=== PATIENT | female | born 1935 | race Caucasian/White ===

== ENCOUNTER → 2018-07-02 | Outpatient (REF) | payer MEDICARE, OTHER ==
[~2018-07-02] MED LIST: ACEBUTOLOL200 MG OR; ACYCLOVIR400 MG PO; ACYCLOVIR800 MG PO; ALENDRONATE70 MG OR; ALENDRONATE70 MG PO; ALLEVIATE PO; AMANTADINE100 MG PO; AMBIEN5 MG PO; ANTIVERT OR; ANTIVERT PO; ANTIVERT12.5 MG PO; ASA LOW DOSE81 MG OR; ASPIRIN EC81 MG PO; ATIVAN0.5 MG PO; AVELOX400 MG PO; B COMPLE2 PO; B6 FOLIC ACD OR; BACTRIM DS1 TAB OR; BENAZEPRIL10 MG PO; BENAZEPRIL5 MG OR; BL FLAX SEED1000 MG PO; BL MAGNESIUM250 MG OR; CALCIUM + D600 MG PO; CALCIUM PO; CARAFATE OR; CARVEDILOL12.5 MG OR; CARVEDILOL25 MG PO; CEPHALEXIN500 MG OR; CHILD ASA81 MG OR; CIPROFLOXACN500 MG PO; CLOPIDOGREL75 MG PO; CO Q-10100 MG PO; CO Q-1075 MG OR; CO Q10 MAX200 MG PO; COREG OR; COREG25 MG PO; COUMADIN5 MG PO; D-MANNOSE OR; DIGOXIN0.25 MG PO; FISH OIL1000 MG PO; FLAX SEED1000 MG PO; FLEXERIL PO; FLOMAX0.4 M1 PO; FLONASE NASAL50 MCG; FUROSEMIDE40 MG PO; GINGER ROOT PO; GINGER ROOT550 MG PO; GNP RED YEAST RICE PO; GREEN TEA315 MG PO; HUMALOG100 MG/ML SC; INSULIN 70/30; ISOSORB DIN30 MG OR; ISOSORB DIN30 MG PO; ISOSORB MONO30 MG PO; KLOR-CON 1010 ME1 PO; KLOR-CON 1010 MEQ PO; LASIX40 MG PO; LORAZEPAM0.5 MG PO; LORTAB 1010 MG PO; LORTAB5 OR; MACRODANTIN100 MG PO; MAREPA1000 MG OR; MECLIZINE HCL25 MG PO; MECLIZINE25 M1 PO; MECLIZINE25 MG OR; MECLIZINE25 MG PO; METRONIDAZOL500 MG PO; MULTIVITAM10 PO; MULTIVITAMI1 PO; NEURONTIN100 MG OR; NOVOLIN 70/30; NOVOLIN 70/30 SC; NOVOLIN R IJ; NOVOLOG MIX100 U/ML SC; PERCOCET 5/321 COMBO PO; PERCOCET 5/325M1 TAB PO; PHENERGAN25 MG/TAB PO; PLAVIX75 MG PO; PRILOSEC20 MG PO; PRIMIDONE50 MG PO; PROMETHAZINE25 M1 PO; PROMETHAZINE25 MG PO; RELION 70/30 SC; RESTORIL30 MG PO; SUCRALFATE1 GM PO; SUPER B COMPLEX PO; SUPER B COMPLEX1 CAP PO; TEMAZEPAM30 MG PO; TOPAMAX50 MG PO; TOPIRAMATE15 MG PO; TOPIRAMATE50 MG PO; TYLENOL # 31 TAB OR; TYLENOL325 MG PO; VITAMIN B-121000 MC1 SL; VITAMIN C1000 MG OR; VITAMIN D-31000 UNIT PO; WARFARIN2.5 MG PO; WARFARIN5 MG PO; XARELTO20 MG PO; ZITHROMAX250 MG PO; ZPAK PO; [UNRECOGNIZED DRUG - OTHER]; [UNRECOGNIZED DRUG - OTHER] OR; [UNRECOGNIZED DRUG - OTHER] OR; [UNRECOGNIZED DRUG - OTHER] PO; [UNRECOGNIZED DRUG - OTHER] PO
[2018-07-02 07:55] LABS: URINE BILIRUBIN - DIPSTICK NEGATIVE (NEGATIVE); URINE BLOOD DIPSTICK TRACE-INTACT (NEGATIVE); URINE COLOR YELLOW; URINE GLUCOSE - DIPSTICK NEGATIVE (NEGATIVE); URINE KETONE NEGATIVE (NEGATIVE); URINE LEUK ESTERASE SMALL (NEGATIVE); URINE NITRITE - DIPSTICK NEGATIVE (Negative); URINE PROTEIN - DIPSTICK NEGATIVE (NEG-TRACE); URINE UROBILINOGEN - DIPSTICK 0.2 E.U./dL (0.2)
[2018-07-02 07:57] LABS: HEMATOCRIT 45.5 % (37.0-47.0); HEMOGLOBIN 15.1 g/dl (12.0-16.0); IMMATURE GRANULOCYTES 0.3 % (0.0-5.0); MEAN CELL VOLUME 96.6 fL CALC (80.0-100.0); MEAN CORPUSCULAR HGB 32.1 pG CALC (26.0-32.0); MEAN CORPUSCULAR HGB CONC 33.2 g/L CALC (32.0-36.0); NEUT# 1.66 thou/uL (2.00-7.15); RED BLOOD COUNT 4.71 mill/uL (4.20-5.60); RED CELL DISTRI WIDTH 13.2 % (11.5-15.5)
[2018-07-02 08:06] LABS: URINE BACTERIA FEW hpf; URINE RBC 0-2 RBC/hpf (0-5); URINE SQUAMOUS EPITHELIAL CELL FEW EPI/hpf (0-FEW)
[2018-07-02 08:07] LABS: URINE TRANSITIONAL EPI. CELLS FEW hpf
[2018-07-02 08:38] LABS: ALBUMIN 4.1 g/dL (3.2-5.0); ALKALINE PHOSPHATASE 70 u/l (38-126); ANION GAP 13 (6-22 (CALC)); BILIRUBIN, TOTAL 0.6 mg/dL (0.0-1.4); BUN 14 mg/dL (8-23); BUN/CREATININE RATIO 20 (12-20 (CALC)); CALCULATED LDLCHOLESTEROL 108 mg/dL (62-129 (CALC)); CARBON DIOXIDE 29 mmol/l (22-30); CHLORIDE 103 mmol/l (95-108); CHOLESTEROL HDL RATIO 3.5 (<4.4 (CALC)); CREATININE 0.7 mg/dL (0.5-1.0); GFR > 60 ML/MIN (>=60 (CALC)); GFR FOR AFR.AMER. > 60 ML/MIN (>=60 (CALC)); HDL CHOLESTEROL 55 mg/dL (>=40); POTASSIUM 4.4 mmol/l (3.5-5.1); SGOT/AST 31 u/l (9-36); SODIUM 141 mmol/l (137-146); TOTAL CHOLESTEROL 191 mg/dl (0-199); TOTAL PROTEIN 6.7 g/dL (6.3-8.2); TOTAL TRIGLYCERIDES 138 mg/dl (30-149); VLDL CHOLESTROL 28 mg/dl (0-48 (CALC))
== END | disposition home or self-care (01) ==
LOC: LAB 06:44
PROVIDERS: ATTEND Nurse Practitioner Family
DX: E11.9 Type 2 diabetes mellitus without complications (principal); I10 Essential (primary) hypertension; R04.2 Hemoptysis; R30.0 Dysuria

== ENCOUNTER → 2018-07-10 | Outpatient (REF) | payer MEDICARE, OTHER ==
[2018-07-10 11:57] LABS: URINE BILIRUBIN - DIPSTICK NEGATIVE (NEGATIVE); URINE BLOOD DIPSTICK NEGATIVE (NEGATIVE); URINE CLARITY CLEAR; URINE COLOR YELLOW; URINE GLUCOSE - DIPSTICK NEGATIVE (NEGATIVE); URINE KETONE NEGATIVE (NEGATIVE); URINE LEUK ESTERASE TRACE (Negative); URINE NITRITE - DIPSTICK NEGATIVE (Negative); URINE PH 5.5 (4.5-8.0); URINE PROTEIN - DIPSTICK NEGATIVE (NEG-TRACE); URINE UROBILINOGEN - DIPSTICK 0.2 E.U./dL (0.2)
== END | disposition home or self-care (01) ==
LOC: LAB 11:17
PROVIDERS: ATTEND Internal Medicine Geriatric Medicine
DX: N39.0 Urinary tract infection, site not specified (principal)

== ENCOUNTER 2018-08-11 08:23 | Emergency (ER) | payer MEDICARE, OTHER ==
[~2018-08-11] VITALS: Ht 177.8 cm; Wt 79.1 kg
[~2018-08-11 08:23] MED LIST changes: -MACRODANTIN100 MG PO
[2018-08-11 10:05] LABS: HEMATOCRIT 45.8 % (37.0-47.0); HEMOGLOBIN 15.2 g/dl (12.0-16.0); IMMATURE GRANULOCYTES 0.2 % (0.0-5.0); MEAN CELL VOLUME 96.6 fL CALC (80.0-100.0); MEAN CORPUSCULAR HGB 32.1 pG CALC (26.0-32.0); MEAN CORPUSCULAR HGB CONC 33.2 g/L CALC (32.0-36.0); NEUT# 3.08 thou/uL (2.00-7.15); RED BLOOD COUNT 4.74 mill/uL (4.20-5.60); RED CELL DISTRI WIDTH 13.2 % (11.5-15.5)
[2018-08-11 10:33] LABS: ALBUMIN 4.2 g/dL (3.2-5.0); ALKALINE PHOSPHATASE 72 u/l (38-126); ANION GAP 13 (6-22 (CALC)); BILIRUBIN, TOTAL 0.8 mg/dL (0.0-1.4); BUN 16 mg/dL (8-23); BUN/CREATININE RATIO 22 (12-20 (CALC)); CARBON DIOXIDE 30 mmol/l (22-30); CHLORIDE 101 mmol/l (95-108); CREATININE 0.7 mg/dL (0.5-1.0); GFR > 60 ML/MIN (>=60 (CALC)); GFR FOR AFR.AMER. > 60 ML/MIN (>=60 (CALC)); POTASSIUM 4.5 mmol/l (3.5-5.1); SGOT/AST 35 u/l (9-36); SODIUM 139 mmol/l (137-146); TOTAL PROTEIN 7.4 g/dL (6.3-8.2)
[2018-08-11 10:43] LABS: URINE BILIRUBIN - DIPSTICK NEGATIVE (NEGATIVE); URINE BLOOD DIPSTICK TRACE-INTACT (NEGATIVE); URINE COLOR DK. YELLOW; URINE GLUCOSE - DIPSTICK NEGATIVE (NEGATIVE); URINE KETONE NEGATIVE (NEGATIVE); URINE LEUK ESTERASE MODERATE (NEGATIVE); URINE NITRITE - DIPSTICK POSITIVE (Negative); URINE PROTEIN - DIPSTICK NEGATIVE (NEG-TRACE); URINE SPECIFIC GRAVITY 1.015; URINE UROBILINOGEN - DIPSTICK 0.2 E.U./dL (0.2)
[2018-08-11 10:44] LABS: URINE BACTERIA MANY hpf; URINE EPITHELIAL CELLS MODERATE EPI/hpf (0-FEW); URINE RBC 0-2 RBC/hpf (0-5); URINE WBC 20-50 WBC/hpf (0-5)
[2018-08-11] MEDS ORDERED: MACRODANTIN100 MG PO (11:14)
[2018-08-11 11:19] VITALS: BP 125/62
== END 2018-08-11 11:38 | disposition home or self-care (01) ==
LOC: ED 08:23
PROVIDERS: Emergency Medicine
DX: S40.011A Contusion of right shoulder, initial encounter (principal); N39.0 Urinary tract infection, site not specified; S80.12XA Contusion of left lower leg, initial encounter; W01.0XXA Fall on same level from slipping, tripping and stumbling without subsequent striking against object, initial encounter; Y93.E8 Activity, other personal hygiene; Y92.009 Unspecified place in unspecified non-institutional (private) residence as the place of occurrence of the external cause

== ENCOUNTER 2019-03-20 09:35 | Day surgery (SDC) | payer MEDICARE, OTHER ==
[~2019-03-20] VITALS: Ht 177.8 cm; Wt 75.2 kg
[~2019-03-20 09:35] MED LIST changes: +COQ-10100 M1 PO; +MACRODANTIN100 MG PO; +PRADAXA150 M1 PO; +VITAMIN B CO PO
[2019-03-20 12:33] VITALS: BP 119/57
== END 2019-03-20 12:45 | disposition home or self-care (01) ==
LOC: ENDO 09:35 → ORM 11:45 → ENDO 12:45
PROVIDERS: ATTEND Internal Medicine Gastroenterology
PROC: 0D758ZZ Dilation of Esophagus, Via Natural or Artificial Opening Endoscopic (ICD-10-PCS; principal; 2019-03-20)
PROC: 0DB48ZX Excision of Esophagogastric Junction, Via Natural or Artificial Opening Endoscopic, Diagnostic (ICD-10-PCS; 2019-03-20)
PROC: 0DB78ZX Excision of Stomach, Pylorus, Via Natural or Artificial Opening Endoscopic, Diagnostic (ICD-10-PCS; 2019-03-20)
DX: K22.8 Other specified diseases of esophagus (principal); K29.70 Gastritis, unspecified, without bleeding; K29.80 Duodenitis without bleeding; K44.9 Diaphragmatic hernia without obstruction or gangrene; K25.9 Gastric ulcer, unspecified as acute or chronic, without hemorrhage or perforation; K20.9 Esophagitis, unspecified; K31.9 Disease of stomach and duodenum, unspecified; I11.0 Hypertensive heart disease with heart failure; E11.9 Type 2 diabetes mellitus without complications; I25.10 Atherosclerotic heart disease of native coronary artery without angina pectoris; I50.9 Heart failure, unspecified; I25.2 Old myocardial infarction; Z95.1 Presence of aortocoronary bypass graft; Z86.73 Personal history of transient ischemic attack (TIA), and cerebral infarction without residual deficits; Z95.5 Presence of coronary angioplasty implant and graft; Z79.02 Long term (current) use of antithrombotics/antiplatelets

== ENCOUNTER 2021-07-26 10:05 | Emergency (ER) | payer MEDICARE, OTHER ==
[~2021-07-26] VITALS: Ht 177.8 cm; Wt 86.0 kg
[2021-07-26] VITALS (20 sets, daily range): BP systolic 40–136; BP diastolic 26–77
[2021-07-26 10:46] LABS: ALBUMIN 3.7 g/dL (3.2-5.0); ALKALINE PHOSPHATASE 95 u/l (38-126); BILIRUBIN, TOTAL 0.4 mg/dL (0.0-1.4); BUN 20 mg/dL (8-23); BUN/CREATININE RATIO 33 (12-20 (CALC)); CARBON DIOXIDE 29 mmol/l (22-30); CHLORIDE 98 mmol/l (95-108); CREATININE 0.6 mg/dL (0.5-1.0); GFR > 60 ML/MIN (>=60 (CALC)); GFR FOR AFR.AMER. > 60 ML/MIN (>=60 (CALC)); LIPASE 45 u/l (23-300); MAGNESIUM 1.8 mg/dL (1.6-2.3); SGOT/AST 34 u/l (9-36); SODIUM 134 mmol/l (137-146); TOTAL PROTEIN 7.3 g/dL (6.3-8.2)
[2021-07-26 10:47] LABS: ANION GAP 13 (6-22 (CALC)); POTASSIUM 5.6 mmol/l (3.5-5.1)
[2021-07-26 10:51] LABS: HEMOGLOBIN 14.3 g/dl (12.0-16.0); IMMATURE GRANULOCYTES 0.3 % (0.0-5.0); MEAN CORPUSCULAR HGB 33.4 pG CALC (26.0-32.0); MEAN CORPUSCULAR HGB CONC 32.5 g/dL CAL (32.0-36.0); NEUT# 7.54 thou/uL (2.00-7.15); RED BLOOD COUNT 4.28 mill/uL (4.20-5.60); RED CELL DISTRI WIDTH 16.7 % (11.5-15.5)
[2021-07-26 10:52] LABS: MEAN CELL VOLUME 102.8 fL CALC (80.0-100.0)
[2021-07-26 10:54] LABS: PROTHROMBIN TIME 10.6 SECONDS (9.0-12.5)
[2021-07-26] MEDS ORDERED: COREG25 MG PO (11:10)
[2021-07-26] MEDS ORDERED: PRIMIDONE50 MG PO (11:12)
[2021-07-26 11:24] LABS: URINE BILIRUBIN - DIPSTICK NEGATIVE (NEGATIVE); URINE BLOOD DIPSTICK NEGATIVE (NEGATIVE); URINE COLOR YELLOW; URINE GLUCOSE - DIPSTICK NEGATIVE (NEGATIVE); URINE KETONE NEGATIVE (NEGATIVE); URINE LEUK ESTERASE NEGATIVE (NEGATIVE); URINE PROTEIN - DIPSTICK TRACE mg/dL (NEG-TRACE); URINE SPECIFIC GRAVITY >=1.030; URINE UROBILINOGEN - DIPSTICK 0.2 E.U./dL (0.2)
[2021-07-26 11:25] LABS: URINE NITRITE - DIPSTICK NEGATIVE (Negative)
--- NOTE | 2021-07-26 11:31 | NUR ---
PER DR LINTON ORDER, AND POWER OF SLIDE DEVELOPER REQUEST. PT WAS A DNI/DNR AND WAS ASKED TO EXTUBATE PATEINT TO NASAL CANNULA FOR COMFORT CARE ONLY. PT EXTUBATED AT 1131 BY SHUBHAM Elkins RRT AND PLACED ON 4 LITER NC. RT NOTED AND REPORTED RAPIDLY DECLINING O2 SATS WITHOUT SECURED ARTIFICIAL AIRWAY TO ER STAFF. DNR STILL IN PLACE AND COMFORT CARE ORDERS PLACED.
== END 2021-07-26 15:49 | disposition expired ==
LOC: ED 10:05
PROVIDERS: Family Medicine
PROC: 02HV33Z Insertion of Infusion Device into Superior Vena Cava, Percutaneous Approach (ICD-10-PCS; principal; 2021-07-26)
PROC: 0BH17EZ Insertion of Endotracheal Airway into Trachea, Via Natural or Artificial Opening (ICD-10-PCS; 2021-07-26)
PROC: 5A1935Z Respiratory Ventilation, Less than 24 Consecutive Hours (ICD-10-PCS; 2021-07-26)
DX: J96.00 Acute respiratory failure, unspecified whether with hypoxia or hypercapnia (principal); J18.9 Pneumonia, unspecified organism; I10 Essential (primary) hypertension; E11.9 Type 2 diabetes mellitus without complications; I25.10 Atherosclerotic heart disease of native coronary artery without angina pectoris; Z95.5 Presence of coronary angioplasty implant and graft; Z95.1 Presence of aortocoronary bypass graft; Z79.4 Long term (current) use of insulin; Z51.5 Encounter for palliative care; Z66 Do not resuscitate